=== PATIENT | female | born 1970 | race Caucasian/White ===

== ENCOUNTER 2020-04-14 09:29 | Day surgery (SDC) | payer OTHER ==
[2020-04-11 09:54] LABS: Urine Appearance CLEAR; Urine Bilirubin NEGATIVE (NEG); Urine Blood NEGATIVE (NEG); Urine Color YELLOW; Urine Glucose NEGATIVE (NEG); Urine Protein NEGATIVE (NEG); Urine Urobilinogen 0.2 mg/dL (0.2-1.0); Urine pH 7.5 (5.0-7.0)
[2020-04-11 09:58] LABS: Absolute Lymphocytes (CBC) 1.7 K/uL (0.7-4.9); Basophils % 0.9 % (0-1.3); Hematocrit 39.6 % (36.0-45.0); Lymphocytes % 37.5 % (15.3-44.8); MPV 8.7 fL (7.6-11.3); RBC Red Blood Cell Count 4.58 M/uL (3.86-4.86)
[2020-04-11 10:01] LABS: Protime INR 0.91
[2020-04-11 10:21] LABS: Urine Microscopic Reflex NO UMIC
[2020-04-11 10:22] LABS: Potassium 3.8 mmol/L (3.5-5.1)
[2020-04-14 09:58] LABS: Specific Gravity 1.025 (1.005-1.030)
[2020-04-14] MEDS ORDERED: HEPARIN 5000 UNIT/ML 1 ML VIAL ONE (10:14)
[2020-04-14] MEDS ORDERED: SCOPOLAMINE HYDROBROMIDE PATCH TD ONE (10:14)
[2020-04-14] MEDS ORDERED: Ringers Lactate 1,000 ML IV ONE ×2 (10:15→10:42)
[2020-04-14] MEDS: CEFAZOLIN/SWI 2gm 2 GM/20 ML SYR ONE ×2 (11:08→11:40)
[2020-04-14] MEDS: BUPIVACAINE 0.5% Inj,MDV 50 mL VIAL ONE ×3 (11:08→14:35)
[2020-04-14] MEDS ORDERED: propofoL 200 MG/20 ML VIAL IV ONE (11:11)
[2020-04-14] MEDS ORDERED: dexAMETHasone 10 MG/ML VIAL ONE (11:11)
[2020-04-14] MEDS ORDERED: MIDAZOLAM HCL 2 MG/2 ML INJ ONE (11:11)
[2020-04-14] MEDS ORDERED: FENTANYL CITR 250 MCG/5 ML ONE (11:11)
[2020-04-14] MEDS ORDERED: LIDOCAINE 2% MPF 5 ML VIAL ONE (11:11)
[2020-04-14] MEDS ORDERED: ROCURONIUM 50 MG/5 ML VIAL IV ONE ×2 (11:12→12:29)
[2020-04-14] MEDS ORDERED: ONDANSETRON 4 MG/2 ML VIAL ONE ×2 (11:12→15:25)
[2020-04-14] MEDS: Ringers Lactate 1,000 ML IV ONE ×2 (13:47→14:38)
[2020-04-14] MEDS ORDERED: FENTANYL CITR 100 MCG/2 ML ONE (14:04)
[2020-04-14] MEDS ORDERED: KETOROLAC 30 MG/ML INJ ONE (14:31)
[2020-04-14] MEDS: HYDROMORPHONE HCL 2 MG/ML inj ONE ×3 (15:13→15:31)
[2020-04-14] MEDS ORDERED: PROMETHAZINE INJ 25 MG/ML AMP ONE (15:31)
[2020-04-14] MEDS ORDERED: HYDROCODONE/APAP 5/325 MG TAB ONE (17:05)
[2020-04-14 18:25] VITALS: BP 128/62; TEMP 97.7; O2SAT 100
--- NOTE | 2020-04-15 01:45 | OP ---
Date of Procedure: 04/14/2020 Surgeon: Melissa Coates MD Food Supervisor: Faina Fields. Postoperative Diagnoses: Menorrhagia (AUB-L/A/E) dysmenorrhea and pelvic pain. Postoperative Diagnoses: Menorrhagia, large leiomyoma, dysmenorrhea, pelvic pain. Procedures Performed: Total laparoscopic hysterectomy, bilateral salpingectomy, left oophorectomy, o variopexy, cystoscopy. Anesthesia: General endotracheal. Estimated Blood Loss: 50. Urine Output: 250. Findings: Uterus, enlarged with a large right posterior fundal and posterior wall leiomyoma, pushing the uterus off to the left and placing pressure on the left adnexal structures. No evidence of endo metriosis in the pelvic cavity. Bowel unremarkable. Posterior cul-de-sac lateral mcdonough, anterior cu l-de-sac, posterior cul-de-sac all unremarkable without any evidence of endometriosis. Gallbladder, upper abdominal surfaces were all inspected and unremarkable. The uterus had to be morcellated in order for it to be retrieved through the vagina. A vaginal closu re was performed with continuous running 2-0 V-Loc and right ovariopexy was performed with a [address]-1 needle to the base of the appendix. This was to decrease the risk of torsion. Indication: The patient is a 49-year-old with prior history of DVT. Hypercoagulable workup was nega tive. The patient had DVT while on combination of contraceptives. There was heavy bleeding and pelv ic pain, so she was investigated with transvaginal ultrasound, fibroid was found. Endometrial sampli ng was performed. No atypia or malignancy was seen. Discussed about all the different options and a fter the COVID-19 delay, finally her pain and bleeding had not subsided and after discussing all the alternatives, she was consented for the hysterectomy, bilateral salpingectomy, left oophorectomy, kassidy ving retention of one of the ovaries for ovarian hormone production, so she did not have to be on hor toni therapy, which could potentially increase her risk for clotting. Perioperatively, patient got 5 000 units of heparin subcu and she was given Lovenox 60 mg subcu daily 1 dose for 2 weeks postop. Sh e was given instructions to start that 24 hours after the surgery to balance the risk of bleeding. Description Of Procedure: After informed consent was verified, the patient was taken back to OR. 2 g of Ancef were given. She was placed in a supine fashion on the operating table, general anesthesia was given, placed in the dorsal lithotomy position. Abdomen, vulva, vagina, and perineum were prepp ed and draped in a sterile fashion. Larose was placed to drain the bladder and attached for retrograd e filling. A large VCare introduced into the uterus and fixed in place. This area was draped. A 1 cm infraumbilical incision was made with a scalpel using the open laparoscopy technique. Fascia was incised, tagged with 0 Vicryl sutures. S-retractor was placed after the peritoneum was entered blunt ly. Abran was introduced. Site of entry was checked, unremarkable. Upper abdominal surface unrema rkable as dictated above. A 10 mm suprapubic, 5 mm left lower quadrant ports were placed under direc t vision after injecting 0.25% Marcaine at both skin and fascia and the preperitoneal space. Once th ey were placed without any problems, then inspected the pelvic cavity. Both ureters had undistorted courses. No evidence of any endometriosis as dictated above. However, the deviation of the uterus a nd the cervix were towards the left and the fibroid posteriorly on the right wall and at the fundus w as distorting the anatomy. The bowel was retracted with the help of 3-0 Monocryl suture and a Chris -Lu needle was used to pull this out through the left upper quadrant for retraction. Then, the surgery was started. The peritoneum was opened up right below the broad ligament on the left side. Bladder flap raised all the way to the round ligament on the opposite side. The bladder was dissect ed inferiorly and the vessels were exposed on both sides anteriorly. The cervix was deviated over to the left, made sure that all the anatomy was well identified. Then, the broad ligament was opened u p superior to the round ligament at the base of the mesosalpinx. The round ligament was taken down i n isolated fashion with the help of the LigaSure and the bipolar basket to prevent back bleeding, the uterus was cauterized with the bipolar. Then, the mesosalpinx tube were removed. The tube was retr ieved and handed off for permanent pathology as a specimen. Then utero-ovarian ligament was taken do wn, the ovary was left dissected hanging on the ovarian pedicle at the IP ligament. The posterior pe ritoneum was taken down to the level of the left uterosacral and the broad ligament was cleaned up wi th the LigaSure and vessels were identified. The vessels were cauterized on the side to decrease the pulse pressure going into the uterus and for easy dissection of opposite side without excessive bloo d loss. There were ascending and descending branches of the vein, all these were cauterized, then at tention was directed to the opposite side. The broad ligament was opened up superior to the round li gament on the right side as well and the round ligament taken down separately. Then, the utero-ovari an ligament was taken down, the tube was dissected and and retrieved. Then the utero-ovari an ligament connection was taken down. The broad ligament opened up posteriorly all the way to the r ight uterosacral ligament, anterior broad ligament was already opened up as soon as the round was ja en down. Then the dissection was carried to the level of the vessels, then the bladder was cleaned d own a little further to expose the VCare cup. The vessels on the medial side were isolated with the help of a monopolar hook, making a parallel incision to the vessels. Then, the bipolar basket tip wa s used to cauterize the vessels on both sides and then the vessels were taken down with the bipolar L igaSure. Cardinal ligaments were also taken down on the opposite side, similar dissection was perfor med and vessels isolated, then the already cauterized vessels were taken down without any problems an d then the cardinal ligaments were taken down as well. Circumferential colpotomy performed with the monopolar hook blade and specimen . Once the specimen was attempted to be pulled out throug h the vaginal canal, this would not fit and so plan was made to perform a vaginal morcellation. The Hastings speculum placed in the posterior aspect, 2 small retractors on the top, mass clamps were loida lars on the cervix and once the uterine wall was incised at the lower part of the body of the uterus, the fibroid was exposed. The myometrium was cut further in order for me to be able to pull the fibro id out and once this was nicely maneuvered, did not need to morcellate any further and this was entir keenan removed through the vagina. A vaginal occluder was placed with the sponge and a glove and all th e gown and gloves were changed, went on to the laparoscopic part. Thorough irrigation and suction we re performed. The left ovary was removed and retrieved through the vaginal canal. Then, after thoro ugh irrigation and suction were performed, all pedicles were hemostatic. Ovariopexy was done to the base of the round ligament and tied down with a 0 Vicryl suture using intracorporeal knots then went on to close the vaginal cuff in a two-layered fashion starting on the right side, closing the vaginal epithelium and sub-epithelium all the way to the left and then closing the fascial layers together f rom left to right and 2 back sutures were taken to prevent uncoiling. 2-0 V-Loc was used with this, and once this was done, there was no evidence of electrical, mechanical, or thermal injury to the ure ters. Thorough irrigation and suction were performed. All pedicles were hemostatic. All the trocar s were removed under direct vision. The bowel retraction was also removed. No evidence of any bleed ing at the trocar side, piercing for the Chris-Lu, or at the level of the epiploicae and the b owel. Gas was desufflated in a close fashion and all the trocars removed. Fascia at the umbilicus c losed with a [id number] 0 Vicryl suture. After the retention sutures were removed, then a deep stitch was placed at the suprapubic subcutaneous plane. It was very difficult to get down to the fas marquise and the fascial incision did not appear to be too big. The skin closed with interrupted 4-0 Vicryl. Steri-Strips placed in bandages. Then, Larose removed, vaginal sponge removed. Cystoscopy with 17-Malaysian sheath, 30-degree lens normal saline. Both ureter ic orifices were well visualized, strong streams from both. No evidence of any mass inside the bladd er. The bladder was then drained and the patient was recovered from anesthesia. Instrument, needle, and sponge counts were correct at the end of the case. EBL 50. The patient tolerated the procedure well. She was recovered from anesthesia in the OR and taken to the PACU in stable condition. She w ill follow up with me in 1 week. All the findings discussed with her and Lovenox was started in the morning. SK/BARRERAL Voice ID: [id number] Report ID: [id number]
== END 2020-04-14 18:12 | disposition home or self-care (01) ==
LOC: OR 09:29
PROVIDERS: ATTEND Obstetrics & Gynecology
PROC: 0UT14ZZ Resection of Left Ovary, Percutaneous Endoscopic Approach (ICD-10-PCS; 2020-04-14)
PROC: 0UT74ZZ Resection of Bilateral Fallopian Tubes, Percutaneous Endoscopic Approach (ICD-10-PCS; 2020-04-14)
PROC: 0UT94ZZ Resection of Uterus, Percutaneous Endoscopic Approach (ICD-10-PCS; principal; 2020-04-14 10:30)
DX: N92.1 Excessive and frequent menstruation with irregular cycle (principal); N94.6 Dysmenorrhea, unspecified; D25.9 Leiomyoma of uterus, unspecified; N80.0 Endometriosis of uterus; N88.8 Other specified noninflammatory disorders of cervix uteri; Z11.59 Encounter for screening for other viral diseases; Z86.718 Personal history of other venous thrombosis and embolism
CPT/HCPCS: 85025; 80048; 36415; 86900; 86850; 81025; 85610; 86901; 88307; 85730; 81003; 58571; J2704; J2550; J1644; J2250; J1170; J3010 ×2; J1100; J0690; J7120 ×3; J2405 ×2